=== PATIENT | male | born 1955 ===

== ENCOUNTER 2016-05-30 17:06 | Outpatient (CLI) | payer OTHER | END 2016-05-30 17:07 | disposition home or self-care (01) | LOC: LABHHL 17:06 | DX: M60.000 Infective myositis, unspecified right arm (principal) | CPT/HCPCS: 36415; 80202 ==

== ENCOUNTER 2016-06-16 13:43 | Outpatient (CLI) | payer OTHER ==
[2016-06-16 14:22] LABS: Basophils % (Auto) 0.4 % (0.0-1.8); Eosinophils % (Auto) 5.8 % (0.0-4.3); Hematocrit 26.2 % (35.5-45.6); Hemoglobin 8.5 gm/dl (11.8-15.2); Mean Corpuscular HGB Conc 32 % (32-34); Mean Corpuscular Volume 77 fl (84-94); Platelet Count 289 K/mm3 (140-440); Red Blood Count 3.41 M/mm3 (3.65-5.03); Red Cell Distribution Width 17.8 % (13.2-15.2); White Blood Count 8.9 K/mm3 (4.5-11.0)
[2016-06-16 14:24] LABS: Mean Corpuscular Hemoglobin 25 pg (28-32)
[2016-06-16 14:42] LABS: Alanine Aminotransferase 9 units/L (7-56); Albumin 2.9 g/dL (3.9-5); Albumin/Globulin Ratio 0.6 %; Alkaline Phosphatase 115 units/L (35-129); Bilirubin,Total 0.2 mg/dL (0.1-1.2); Blood Urea Nitrogen 14 mg/dL (9-20); Calcium 8.9 mg/dL (8.4-10.2); Carbon Dioxide 27 mmol/L (22-30); Creatine Kinase 55 units/L (55-170); Glucose 50 mg/dL (75-100); Total Protein 7.9 g/dL (6.3-8.2)
[2016-06-16 14:43] LABS: Anion Gap 16 mmol/L; Chloride 101.1 mmol/L (98-107); Potassium 3.9 mmol/L (3.6-5.0); Sodium 140 mmol/L (137-145)
[2016-06-16 14:51] LABS: Erythrocyte Sedimentation Rate > 140.0 mm/Hr (0-20)
== END 2016-06-16 13:44 | disposition home or self-care (01) ==
LOC: LABHHL 13:43
DX: Z45.2 Encounter for adjustment and management of vascular access device (principal); M60.051 Infective myositis, right thigh; L73.2 Hidradenitis suppurativa
CPT/HCPCS: 36415; 80053; 82550; 85025; 85652; 86140

== ENCOUNTER 2016-06-23 11:52 | Outpatient (CLI) | payer OTHER ==
[2016-06-23 12:14] LABS: Basophils % (Auto) 0.3 % (0.0-1.8); Eosinophils % (Auto) 8.6 % (0.0-4.3); Hematocrit 28.3 % (35.5-45.6); Mean Corpuscular HGB Conc 32 % (32-34); Mean Corpuscular Volume 77 fl (84-94); Platelet Count 259 K/mm3 (140-440); Red Blood Count 3.69 M/mm3 (3.65-5.03); Red Cell Distribution Width 17.7 % (13.2-15.2); White Blood Count 7.8 K/mm3 (4.5-11.0)
[2016-06-23 12:22] LABS: Mean Corpuscular Hemoglobin 24 pg (28-32)
[2016-06-23 12:29] LABS: Anion Gap 16 mmol/L; Blood Urea Nitrogen 16 mg/dL (9-20); Carbon Dioxide 25 mmol/L (22-30); Glucose 64 mg/dL (75-100); Sodium 141 mmol/L (137-145)
[2016-06-23 13:11] LABS: Erythrocyte Sedimentation Rate > 140.0 mm/Hr (0-20)
== END 2016-06-23 11:53 | disposition home or self-care (01) ==
LOC: LAB 11:52
DX: Z45.2 Encounter for adjustment and management of vascular access device (principal); L73.2 Hidradenitis suppurativa; M60.051 Infective myositis, right thigh
CPT/HCPCS: 36415; 80048; 85025; 85652; 86140